=== PATIENT | female | born 1955 | race Caucasian/White ===

== ENCOUNTER 2020-08-03 07:44 | Day surgery (SDC) | payer BC ==
[2020-08-02 13:21] VITALS: BMI 23.6
[2020-08-03] MEDS ORDERED: AFRIN NASAL MIST 15 ML BOT ONE ×2 (10:04→10:35)
[2020-08-03 10:20] LABS: Hemoglobin 14.6 g/dL (12.0-16.0)
[2020-08-03] MEDS ORDERED: Lidocaine 1% w/Epinephrine 1:100K 20 ML VIAL ONE (10:35)
[2020-08-03] MEDS ORDERED: Fentanyl 100 MCG/2 ML VIAL ONE (10:40)
[2020-08-03] MEDS ORDERED: Famotidine/PF 20 mg/2ml Vial ONE (10:40)
[2020-08-03] MEDS ORDERED: Dexamethasone 20 MG/5 ML VIAL ONE (11:45)
[2020-08-03] MEDS ORDERED: Succinylcholine 200 MG/10 ml SYRINGE FS ONE (11:45)
[2020-08-03] MEDS ORDERED: Ondansetron PF 4 MG/2 ML Vial ONE (11:45)
[2020-08-03] MEDS ORDERED: Metoclopramide HCl 10 MG/2 ML VIAL ONE (11:45)
[2020-08-03] MEDS ORDERED: Lidocaine 1% PF 5 ML VIAL ONE (11:45)
[2020-08-03] MEDS ORDERED: Ketorolac Tromethamine 30 MG/ML VIAL ONE (11:45)
[2020-08-03] MEDS ORDERED: PHENYLEPHRINE-NS 100 MCG/ML 10 ML SYRINGE ONE (11:45)
[2020-08-03] MEDS ORDERED: PROPOFOL 200 MG/20 ML VIAL ONE (11:45)
[2020-08-08 10:13] LABS: Fungus Stain Final report (.)
== END 2020-08-03 14:27 | disposition home or self-care (01) ==
LOC: SDC 07:44
PROVIDERS: ATTEND Otolaryngology Plastic Surgery within the Head & Neck
PROC: 8E09XBZ Computer Assisted Procedure of Head and Neck Region (ICD-10-PCS; principal; 2020-08-03)
PROC: 09BS8ZZ Excision of Right Frontal Sinus, Via Natural or Artificial Opening Endoscopic (ICD-10-PCS; principal; 2020-08-03)
PROC: 099R8ZZ Drainage of Left Maxillary Sinus, Via Natural or Artificial Opening Endoscopic (ICD-10-PCS; principal; 2020-08-03)
PROC: 099Q8ZZ Drainage of Right Maxillary Sinus, Via Natural or Artificial Opening Endoscopic (ICD-10-PCS; principal; 2020-08-03)
PROC: 09TL8ZZ Resection of Nasal Turbinate, Via Natural or Artificial Opening Endoscopic (ICD-10-PCS; principal; 2020-08-03)
PROC: 09TU8ZZ Resection of Right Ethmoid Sinus, Via Natural or Artificial Opening Endoscopic (ICD-10-PCS; principal; 2020-08-03)
DX: J32.9 Chronic sinusitis, unspecified (principal); J30.9 Allergic rhinitis, unspecified; J34.2 Deviated nasal septum; J34.3 Hypertrophy of nasal turbinates; J33.9 Nasal polyp, unspecified; J34.89 Other specified disorders of nose and nasal sinuses; B49 Unspecified mycosis; Z79.899 Other long term (current) drug therapy
CPT/HCPCS: 36415; 85014; 85018; 87070; 87076; 87102; 87205; 87206; 93005; 93010; J1100; J1885; J2405; J2704; J2765; J3010; S0028